=== PATIENT | male | born 1990 | race Two or more races ===

== ENCOUNTER 2024-07-12 10:35 | Emergency (ER) | payer MEDICAID, SELFPAY ==
[2024-07-12 10:42] VITALS: BP 139/89; PULSE 86; RESP 18; TEMP 36.6; O2SAT 97
--- NOTE | 2024-07-12 10:45 | XR_ITS ---
Examination: Tibia-Fibula, right , 2 views Technique: Tibia-fibula AP lateral 2 views Date and time of exam: July 12, 2024 1106 hrs. Indications: Right lower leg pain beginning 2 days ago. Findings: No fracture or dislocation. No opaque foreign body Impression: No fracture or dislocation
--- NOTE | 2024-07-12 10:58 | PD.EDLOWEX ---
Lower Extremity Injury RME/HPI General Chief Complaint: Extremity Injury, Lower Stated Complaint: R) CALF PAIN, HEARD POP GOING UP STAIRS YESTERDAY Time Seen by Provider: 07/12/24 10:37 Source: patient Arrival date/time: 07/12/24 10:35 34-year-old male with no known medical history presents to the emergency room with a chief complaint of pain and tenderness to his right calf. Patient states he was walking upstairs heard a popping sensation and began having pain since yesterday afternoon. Mode of arrival: ambulatory Limitations: no limitations Related Data Previous Rx's ?Medication ?Instructions ?Recorded meclizine 25 mg tablet 25 mg PO QDAY PRN dizziness #14 07/08/23 tabs hydrocodone 5 mg-acetaminophen 325 1 tab PO BID PRN pain #10 tabs 07/15/23 mg tablet ibuprofen 800 mg tablet 800 mg PO TID PRN pain #30 tabs 07/15/23 Allergies Allergy/AdvReac Type Severity Reaction Status Date / Time No Known Allergies Allergy Verified 07/12/24 10:39 Review of Systems Review of Systems Systems Reviewed: All systems reviewed, normal except as documented Constitutional Constitutional: Reports system reviewed and no additional complaints, except as documented, Denies fatigue, Denies fever(s), Denies headache(s) and Denies weakness Eyes Eyes: Reports system reviewed and no additional complaints, except as documented, Denies blurry vision and Denies change in vision ENT Ears, Nose, Mouth, and Throat: Reports system reviewed and no additional complaints, except as documented, Denies otalgia, Denies headache(s), Denies nasal congestion, Denies throat swelling and Denies vertigo Cardiovascular Cardiovascular: Reports system reviewed and no additional complaints, except as documented, Denies chest pain, Denies dyspnea and Denies dyspnea on exertion Respiratory Respiratory: Reports system reviewed and no additional complaints, except as documented, Denies chest congestion, Denies cough, Denies dyspnea, Denies dyspnea on exertion and Denies wheezing Gastrointestinal Gastrointestinal: Reports system reviewed and no additional complaints, except as documented, Denies abdominal pain, Denies cramping, Denies nausea and Denies vomiting Genitourinary Genitourinary: Reports system reviewed and no additional complaints, except as documented, Denies dysuria and Denies hematuria Musculoskeletal Musculoskeletal: Reports system reviewed and no additional complaints, except as documented, Reports abnormal gait, Reports arthralgias and Denies back pain Integumentary/Breasts Skin/Breast: Reports system reviewed and no additional complaints, except as documented and Denies wounds Neurologic Neurologic: Reports system reviewed and no additional complaints, except as documented, Reports abnormal gait, Denies confusion, Denies headache(s), Denies lack of coordination, Denies vertigo and Denies weakness Psychiatric Psychiatric: Reports system reviewed and no additional complaints, except as documented, Denies anxiety, Denies confusion, Denies depression, Denies paranoia, Denies suicidal ideation and Denies tactile hallucinations Endocrine Endocrine: Reports system reviewed and no additional complaints, except as documented and Denies fatigue Hematologic/Lymphatic Hematologic/Lymphatic: Reports system reviewed and no additional complaints, except as documented and Denies lymphadenopathy Allergic/Immunologic Allergic/Immunologic: Reports system reviewed and no additional complaints, except as documented, Denies throat swelling, Denies urticaria and Denies wheezing ED Exam General Limitations: Present no limitations General appearance: Present alert and in no apparent distress Head Head exam: Present atraumatic Eye Eye exam: Present normal appearance, PERRL and EOMI ENT ENT exam: Present normal exam, normal oropharynx and mucous membranes moist Neck Neck exam: Present normal inspection, full ROM and trachea midline Chest Chest inspection: Present normal inspection and symmetric chest wall rise Respiratory Respiratory exam: Present normal lung sounds bilaterally Cardiovascular Cardiovascular exam: Present regular rate, normal rhythm and normal heart sounds Abdominal Exam Abdominal exam: Present soft and normal bowel sounds Extremities Exam Extremities exam: Present normal inspection and full ROM Expanded Lower Extremity Exam Hip/Pelvis exam: Present normal inspection Upper leg exam: Present normal inspection Knee exam: Present normal inspection Lower leg exam: Present full ROM and tenderness; Absent swelling, deformity, crepitus, erythema or Homans' sign Gait: observed and normal Back Exam Back exam: Present normal inspection and full ROM Neurological Exam Neurological exam: Present alert, oriented X3 and CN II-XII intact Psychiatric Psychiatric exam: Present normal affect and normal mood Skin Skin exam: Present warm, dry, intact and normal color Course Quality Measures none Orders Category Date Time Status akila wrap [Splint / Immobilizer] STAT Care 07/12/24 11:01 Active XR tibia fibula RT 2V Stat Exams 07/12/24 10:45 Completed Ketorolac Inj [Toradol Inj] Med 07/12/24 10:45 Discontinued 30 mg IM X1 ONE Vital Signs Vital signs: Vital Signs Temperature 97.9 F 07/12/24 10:42 Pulse Rate 86 07/12/24 10:42 Respiratory Rate 18 07/12/24 10:42 Blood Pressure 139/89 H 07/12/24 10:42 Pulse Oximetry (%) 97 07/12/24 10:42 Oxygen Delivery Method Room Air 07/12/24 10:42 O2 saturation 97% within normal limits Extremity Injury, Lower MDM Narrative MDM Narrative:: 34-year-old male with no known medical history presents to the emergency room with a chief complaint of pain and tenderness to his right calf. Patient states he was walking upstairs heard a popping sensation and began having pain since yesterday afternoon. Patient is hemodynamically stable and in no apparent distress. Physical examination shows tenderness and pain to the right calf. Patient states there is pain with walking but the patient has full range of motion. There is negative Homans' sign there is no erythema no swelling. Patient states this began yesterday afternoon after walking upstairs. X-ray of the right tib-fib was completed and was negative for any acute findings. Patient was discharged and educated to follow-up with primary care provider in the next 24 to 48 hours and return to the emergency room for any evidence of worsening signs or symptoms Patient data External records reviewed:: [facility] previous records Clinical information provided by:: patient Social determinants that could affect healthcare access:: none Patient has the following chronic illnesses:: No chronic illness How is presenting disease/condition affected by chronic disease/condition?: no chronic disease Evaluation data The following diagnostics were reviewed and interpreted by me:: lab results and radiology exam(s) Lab and/or radiology exams considered but not ordered:: Labs radiology exams considered and ordered Interpretation Summary: Tib-fib [id number]: No fracture or dislocation. No opaque foreign body Impression: No fracture or dislocation Medications / Prescriptions Medications or Prescriptions considered but not ordered:: Medication given Medication administrations:: Medication Administration History Discontinued Medications Ketorolac Tromethamine (Ketorolac Inj 60 Mg/2 Ml Vial) 30 mg IM X1 ONE Stop: 07/12/24 10:46 Last Admin: 07/12/24 11:26 Dose: 30 mg Documented By: Medication given Consultations Consultation(s) initiated? (list below): No Diagnosis Extremity Injury, Lower Differential Diagnosis: other (Right leg sprain/right tib-fib fracture) Most likely diagnosis given after review of the tests above:: Right leg sprain Admission Indicated Admission indicated?: not indicated Admission Request Was there a request for admission?: No Disposition Plan Disposition Plan: Discharge Discharge Attestation Discharge Attestation: The patient and all family members were given an opportunity to ask questions and understood the discharge instructions. Discharge instructions specifically effects, indications for sooner follow up or return to the emergency department, and the expected course of current diagnosis. Patient condition: Stable Discharge Plan Plan Patient Disposition: HOME (Self Care) Discharge Disposition comment: Stable Prescriptions/Referrals Prescriptions/Med Rec: No Action meclizine 25 mg tablet 25 mg PO QDAY PRN (Reason: dizziness) Qty: 14 0RF ibuprofen 800 mg tablet 800 mg PO TID PRN (Reason: pain) Qty: 30 0RF hydrocodone-acetaminophen 5-325 mg tablet 1 tab PO BID MDD 10 PRN (Reason: pain) Qty: 10 0RF Referrals: Tacho Mabry MD [Primary Care Provider] - In 1 week Problem List Clinical Impression: Strain of calf muscle Patient/Caregiver Discharge Instructions Education Materials: ED AKILA Wrap, ED Muscle Strain, Extremity Additional Instructions: Please follow-up with your primary care provider in the next 24 to 48 hours. X-rays were completed and were negative for any acute fracture or dislocation For any evidence of worsening signs or symptoms return the emergency room immediately Print Language: Malawian Stand Alone Forms: Annika Award Info., Patient Portal Info Letter AMINAH/KYLE Supervising Physician AMINAH/KYLE Supervising Physician: Dr. Floyd
[2024-07-12] MEDS: KETOROLAC INJ 60 MG/2 ML VIAL 30 MG IM (11:26)
[2024-07-12 12:40] VITALS: BP 139/88; PULSE 75; RESP 18; TEMP 36.5; O2SAT 97
[2024-07-12 12:45] VITALS: BP 139/88; PULSE 75; RESP 18; TEMP 36.5; O2SAT 97
== END 2024-07-12 12:45 | disposition home or self-care (01) ==
PROVIDERS: Emergency Provider Family Medicine; PCP Family Medicine
DX: S86.911A Strain of unspecified muscle(s) and tendon(s) at lower leg level, right leg, initial encounter (principal); X58.XXXA Exposure to other specified factors, initial encounter; Y93.01 Activity, walking, marching and hiking
CPT/HCPCS: 73590; 96372; 99283; J1885

== ENCOUNTER 2025-01-22 17:55 | Emergency (ER) | payer MEDICAID, SELFPAY ==
[2025-01-22 17:55] VITALS: BMI 43.2
[2025-01-22 18:05] VITALS: BP 144/98; PULSE 83; RESP 18; TEMP 36.7; O2SAT 98
--- NOTE | 2025-01-22 18:22 | EKG_ITS ---
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
--- NOTE | 2025-01-22 18:43 | XR_ITS ---
Examination: Shoulder, right, 3 views Technique: Shoulder AP internal rotation, AP external rotation, Y view shoulder, 3 views Exam date and time : January 22, 2025, 1852 hours INDICATIONS: History of the shoulder today, shoulder pain. FINDINGS: No shoulder fracture or dislocation No AC joint separation IMPRESSION: No fracture or dislocation
--- NOTE | 2025-01-22 18:43 | XR_ITS ---
EXAMINATION: PA chest single view TECHNIQUE: Upright PA chest single view Date and time: January 22, 2025, 1856 hours INDICATIONS: Right-sided chest pain with breathing today. FINDINGS: Normal heart size Lungs are clear. The osseous structures are intact IMPRESSION: No active disease
--- NOTE | 2025-01-22 18:44 | EDRME_ITS ---
Rapid Medical Screening Exam [facility] Arrival date/time: 01/22/25 17:55 34M with no significant PMH presents to ED with 3 days of worsening R-sided shoulder/chest/back pain w/o fall/trauma. Pain is worse when taking a deep breath. Patient denies URI symptoms. Chief Complaint: Chest Pain Vital signs: Vital Signs Temperature 98.1 F 01/22/25 18:05 Pulse Rate 83 01/22/25 18:05 Respiratory Rate 18 01/22/25 18:05 Blood Pressure 144/98 H 01/22/25 18:05 Pulse Oximetry (%) 98 01/22/25 18:05 Oxygen Delivery Method Room Air 01/22/25 18:05 Exam: R shoulder normal ROM. Clear lungs. Clinical Impression: joint pain vs PE vs CAP vs muscle strain vs drug use vs costochondritis
[2025-01-22 19:29] LABS: Basophils # (Auto) 0.1 Thou/mm3 (0.0-0.2); Basophils % (Auto) 1 % (0-2.5); Eosinophils # (Auto) 0.3 Thou/mm3 (0.0-0.5); Eosinophils % (Auto) 2 % (0-10); Hematocrit 43.8 % (41.0-53.0); Hemoglobin 14.5 g/dL (13.5-16.0); Immature Granulocytes Auto 0.07 Thou/mm3 (0.00-0.00); Lymphocytes # (Auto) 3.6 Thou/mm3 (1.0-4.8); Lymphocytes % (Auto) 27 % (10-50); Mean Corpuscular HGB Conc 33.1 g/dl (31.0-37.0); Mean Corpuscular Hemoglobin 29.2 pg (25.0-35.0); Mean Corpuscular Volume 88 fL (80-100); Monocytes # (Auto) 1.0 Thou/mm3 (0.0-0.8); Monocytes % (Auto) 7 % (0-12); Neutrophils # (Auto) 8.1 Thou/mm3 (1.8-7.7); Neutrophils % (Auto) 62 % (37-80); Nucleated Red Blood Cell # 0.00 Thou/mm3 (0.00-0.00); Nucleated Red Blood Cell % 0 /100 WBC (0); Platelet Count 309 Thou/mm3 (140-440); RDW Standard Deviation 41.8 fL (35.1-43.9); Red Blood Count 4.96 Miln/mm3 (4.50-5.90); White Blood Count 13.1 Thou/mm3 (3.8-10.6)
[2025-01-22 19:50] LABS: Alanine Aminotransferase 40 U/L (10-49); Albumin, Serum 4.6 gm/dL (3.5-5.0); Albumin/Globulin Ratio 1.9 (1.2-2.2); Alkaline Phosphatase 72 U/L (46-116); Anion Gap 8 (7-16); Aspartate Amino Transferase 18 U/L (0-34); BUN/Creatinine Ratio 10 Ratio (12-20); Bilirubin,Total 0.3 mg/dL (0.3-1.2); Blood Urea Nitrogen 10 mg/dL (9-23); Calcium 9.4 mg/dL (8.3-10.6); Calcium (Corrected) 9.4 mg/dL (8.5-10.1); Carbon Dioxide 28.6 mMol/L (20.0-31.0); Chloride 103 mMol/L (98-107); Creatinine (Component) 1.0 mg/dL (0.6-1.3); Estimated Creatinine Clearance 136.3 mL/min (>60); Globulin 2.4 gm/dL (2.3-3.5); Glucose 105 mg/dL (74-106); Osmolality,Calculated 278 (275-295); Potassium 3.8 mMol/L (3.4-5.1); Sodium 140 mMol/L (136-145); Total Protein 7.0 gm/dL (5.7-8.2); Troponin I < 0.002 ng/mL (0.0-0.045); eGFR > 60 See Note
[2025-01-22 20:38] VITALS: BP 148/91; PULSE 71; RESP 18; TEMP 36.7; O2SAT 97
[2025-01-22 22:59] LABS: Amphetamine/Methamp Scrn,U Negative (Negative); Barbiturate Screen,Urine Negative (Negative); Benzodiazepines Screen,Urine Negative (Negative); Benzoylecgonine Screen, Ur Negative (Negative); Fentanyl Screen,Urine Negative (Negative); Opiate Screen,Urine Negative (Negative); THC Screen,Urine Positive (Negative)
--- NOTE | 2025-01-23 00:03 | XR_ITS ---
EXAMINATION: Cervical spine, 5 views Technique: Cervical spine AP, AP odontoid, lateral, bilateral obliques, 5 views Exam date and time: January 23, 2025, 0008 hours INDICATIONS: Right neck pain 4 days FINDINGS: Satisfactory alignment cervical vertebral bodies. No cervical fracture. Intact odontoid. Minimal disc narrowing at C4-C5 No neuroforaminal stenosis IMPRESSION: Minimal disc narrowing at C4-C5
--- NOTE | 2025-01-23 00:03 | PD.EDCHEST ---
ED Chest Pain RME/HPI General Chief Complaint: Chest Pain Stated Complaint: SHARP R CHEST AND BACK PAIN Time Seen by Provider: 01/22/25 18:59 Arrival date/time: 01/22/25 17:55 RME / HPI RME / HPI narrative: 01/22/25 17:55 34M with no significant PMH presents to ED with 3 days of worsening R-sided shoulder/chest/back pain w/o fall/trauma. Pain is worse when taking a deep breath. Patient denies URI symptoms. DR. ALEJANDRO MAIN ED EVALUATION: Patient presenting with right posterior neck pain radiating to right anterior chest and lateral shoulder and shoulder blade region x approximately 1 week. Denies UE radiculopathy. No shortness of breath, although notes pain with rotation and flexion of torso. No nausea, vomiting, abdominal pain, dizziness, or lightheadedness/near-syncope. PMH: Negative PSH: Noncontributory Allergies: NKDA Social:Occasional Alcohol, Marijuana, and Tobacco, No illicit drug abuse Exam: R shoulder normal ROM. Clear lungs. Impression: joint pain vs PE vs CAP vs muscle strain vs drug use vs costochondritis Related Data Previous Rx's ?Medication ?Instructions ?Recorded meclizine 25 mg tablet 25 mg PO QDAY PRN dizziness #14 07/08/23 tabs hydrocodone 5 mg-acetaminophen 325 1 tab PO BID PRN pain #10 tabs 07/15/23 mg tablet ibuprofen 800 mg tablet 800 mg PO TID PRN pain #30 tabs 07/15/23 cyclobenzaprine 10 mg tablet 10 mg PO BID 7 days #14 tabs 01/23/25 hydrocodone 5 mg-acetaminophen 325 1 tab PO Q8H PRN pain #20 tabs 01/23/25 mg tablet prednisone 20 mg tablet 40 mg PO QDAY 5 days #10 tabs 01/23/25 Allergies Allergy/AdvReac Type Severity Reaction Status Date / Time No Known Allergies Allergy Verified 01/22/25 17:58 Past Medical History Social History SUBSTANCE USE: marijuana ED Exam Narrative Physical exam: GEN. APPEARANCE: The patient is alert awake oriented X-3 under no distress, lying down comfortably, does not look ill/toxic. Patient has good eye contact. Patient is cooperative. VITALS: All vitals were reviewed and the pulse ox is 100%, which is normal according to my interpretation HEENT: Normocephalic, atraumatic and nontender. Pupils are equal and reactive. Oral mucosa is moist. NECK: Supple, noted TTP mid-cervcial segment midline and right paracervical muscle extending to trapezius belly, noted reproducibility of pain with extension and left rotation of cervical spine. No JVD. There is no thyromegaly and no lymphadenopathy. CHEST: Nontender on palpation no deformity and no crepitus. CARDIOVASCULAR: Heart regular rhythm, no murmur or gallop rub or extra beats. LUNGS: Clear to auscultation bilaterally with symmetrical chest rise. No laboring tachypnea or wheezing. No intercostal subcostal retraction. No rales and no rhonchi. ABDOMEN: Soft, flat, nontender to palpation, no guarding or rebound tenderness. There are no abnormal masses palpated. No pulsatile masses or bruits. Active and normal bowel sounds. EXTREMITIES: Normal inspection and palpation. No edema. No cyanosis. Patient is able to move all 4 extremities well SKIN: Warm and dry, no rashes noted. MUSCULOSKELETAL: No lumbar or midline bony tenderness. There is no CVA tenderness. No paraspinal muscle spasm or tenderness. NEURO: Cranial nerves II through XII grossly intact. There are no focal neurologic deficits noted. GCS is 15 PSYCHIATRIC: Patient is in normal mood and affect, cooperative. LYMPHATICS: No major lymphadenopathy noted. Course Quality Measures none Orders Category Date Time Status Apply soft cervical collar NOW Care 01/23/25 00:59 Completed EKG (ED ONLY) *Do not use* NOW Care 01/22/25 18:22 Completed EKG (ED Only) Stat Exams 01/22/25 18:22 Draft XR cervical spine 4-5V Stat Exams 01/23/25 00:03 Taken XR chest 1V portable Stat Exams 01/22/25 18:43 Completed XR shoulder RT min 2V Stat Exams 01/22/25 18:43 Completed CBC Stat Lab 01/22/25 18:59 Completed Comprehensive Metabolic Panel Stat Lab 01/22/25 18:59 Completed Drug Screen,Urine Stat Lab 01/22/25 22:17 Completed Troponin I Stat Lab 01/22/25 18:59 Completed predniSONE Med 01/23/25 00:06 Discontinued 40 mg PO X1 ONE Vital Signs Vital signs: Vital Signs Temperature 98.1 F 01/22/25 18:05 Pulse Rate 83 01/22/25 18:05 Respiratory Rate 18 01/22/25 18:05 Blood Pressure 144/98 H 01/22/25 18:05 Pulse Oximetry (%) 98 01/22/25 18:05 Oxygen Delivery Method Room Air 01/22/25 18:05 Chest Pain MDM Narrative MDM Narrative:: Scribe Attestation: Deanna Kim, am scribing for and in the presence of Dr. Gallegos. Provider Notation: Although this document has been carefully reviewed, there may still be some phonetic and other typographical errors. These errors are purely grammatical due to imperfections in the software program and should not be construed in any way to compromise the substance of the patient's medical care during this visit. Patient presenting with right posterior neck pain radiating to right anterior chest and lateral shoulder and shoulder blade region x approximately 1 week. Denies UE radiculopathy. Laboratory markers, including CBC and serum chemistries demonstrate and UA all within normal limits. CXR and shoulder x-rays were unremarkable. EKG demonstrated RBBB, no ventricular ectopy. Patient referred for routine spine x-ray which was unremarkable. Given reproducible tenderness, highly suspect cervical nerve root irritation, will place in soft collar, steroids, muscle relaxants, and low-dose narcotic analgesics. Final diagnosis includes non-specific chest pain. Patient data External records reviewed:: [facility] previous records (Reviewed prior ED records from 07/12/24. Patient was seen for Strain of calf muscle. ) Clinical information provided by:: patient Social determinants that could affect healthcare access:: none Patient has the following chronic illnesses:: None reported How is presenting disease/condition affected by chronic disease/condition?: no chronic disease Evaluation data The following diagnostics were reviewed and interpreted by me:: lab results, radiology exam(s), EKG tracing(s) and other (specify) (EKG at 18:27 shows normal sinus rhythm at 75, normal axis, no ectopy, RBBB, per my interpretation.) Lab and/or radiology exams considered but not ordered:: None Interpretation Summary: RADIOLOGY Cervical X-Ray: Pending official radiology report. Shoulder X-Ray: FINDINGS: No shoulder fracture or dislocation No AC joint separation IMPRESSION: No fracture or dislocation Chest X-Ray: FINDINGS: Normal heart size Lungs are clear. The osseous structures are intact IMPRESSION: No active disease Medications / Prescriptions Medications or Prescriptions considered but not ordered:: None Medication administrations:: Medication Administration History Discontinued Medications Prednisone (Prednisone 20 Mg Tablet) 40 mg PO X1 ONE Stop: 01/23/25 00:07 Last Admin: 01/23/25 00:25 Dose: 40 mg Documented By: POPPY See above if any Consultations Consultation(s) initiated? (list below): No Diagnosis Chest Pain Differential Diagnosis: pneumothorax, stable angina, unstable angina pectoris, atypical chest pain, st elevation myocardial infarction, costochondritis and chest pain Most likely diagnosis given after review of the tests above:: non-specific chest pain. Admission Indicated Admission indicated?: not indicated Explain why admission is indicated or not indicated:: Patient does not meet admission criteria Admission Request Was there a request for admission?: No Disposition Plan Disposition Plan: Discharge Discharge Attestation Discharge Attestation: The patient and all family members were given an opportunity to ask questions and understood the discharge instructions. Discharge instructions specifically effects, indications for sooner follow up or return to the emergency department, and the expected course of current diagnosis. Patient condition: Stable Discharge Plan Plan Patient Disposition: HOME (Self Care) Discharge Disposition comment: Stable Prescriptions/Referrals Prescriptions/Med Rec: New cyclobenzaprine 10 mg tablet 10 mg PO BID 7 Days Qty: 14 0RF hydrocodone-acetaminophen 5-325 mg tablet 1 tab PO Q8H MDD 3 tab PRN (Reason: pain) Qty: 20 0RF prednisone 20 mg tablet 40 mg PO QDAY 5 Days Qty: 10 0RF Taper: Prednisone Taper 40 mg DAILY for 5 Days and 0 Hour No Action meclizine 25 mg tablet 25 mg PO QDAY PRN (Reason: dizziness) Qty: 14 0RF ibuprofen 800 mg tablet 800 mg PO TID PRN (Reason: pain) Qty: 30 0RF hydrocodone-acetaminophen 5-325 mg tablet 1 tab PO BID MDD 10 PRN (Reason: pain) Qty: 10 0RF Referrals: No Primary/Family,Physician [Primary Care Provider] - In 1 week Problem List Clinical Impression: Nonspecific chest pain, Musculoskeletal chest pain Patient/Caregiver Discharge Instructions Discharge Activity: activity as tolerated Education Materials: ED Chest Pain, Noncardiac Additional Instructions: Ice compresses alternating with warm moist heat. Gentle massage. Medication as directed. Follow-up with primary care doctor in 5 to 7 days return if worsening. Print Language: Kazakh Stand Alone Forms: Annika Award Info., Patient Portal Info Letter
[2025-01-23 01:13] VITALS: BP 138/92; PULSE 71; RESP 16; TEMP 36.9; O2SAT 100
== END 2025-01-23 01:19 | disposition home or self-care (01) ==
PROVIDERS: Physician Assistant; Emergency Provider Emergency Medicine
DX: R07.89 Other chest pain (principal)
CPT/HCPCS: 36415; 71045; 72050; 73030; 80053; 80307; 84484; 85025; 93005; 99283; J7512